=== PATIENT | male | born 1950 | race Caucasian/White ===

== ENCOUNTER 2019-04-01 18:29 | Outpatient (CLI) | payer MEDICARE, OTHER ==
--- NOTE | 2019-04-04 02:39 | XRAY Report ---
Reason: ACUTE ON CHRONIC R HIP PAIN,MEDIAL THUMP PAIN @ P Procedure Date: 04/01/2019 Accession Number: [id number] / [id number] Procedure: XR - Hand 3 View RT CPT Code: FULL RESULT: EXAM: RIGHT HAND RADIOGRAPHY EXAM DATE: 04/01/2019 06:48 PM. CLINICAL HISTORY: Pain in the right thumb. COMPARISON: None. TECHNIQUE: 3 views. FINDINGS: Bones: No acute fracture seen. Joints: No dislocation seen. Degenerative joint disease in the interphalangeal joints. Degenerative joint disease in the first CMC joint and the second MCP joint. Soft Tissues: Grossly unremarkable. IMPRESSION: 1. No fracture or dislocation seen. 2. Degenerative changes as noted. RADIA
--- NOTE | 2019-04-04 02:57 | XRAY Report ---
Reason: ACUTE ON CHRONIC R HIP PAIN,MEDIAL THUMP PAIN @ P Procedure Date: 04/01/2019 Accession Number: [id number] / [id number] Procedure: XR - Hip w/Pelvis 2-3V RT CPT Code: FULL RESULT: EXAM: RIGHT HIP RADIOGRAPHY EXAM DATE: 04/01/2019 06:48 PM. CLINICAL HISTORY: Acute on chronic right hip pain. COMPARISON: None. TECHNIQUE: 2 views. FINDINGS: Bones: Normal. No fractures or bone lesion. Joints: No dislocation. Mild bilateral hip joint degenerative change. Severe lower lumbar facet arthropathy. Soft Tissues: Vasectomy clips are seen. No soft tissue swelling. A few bilateral hemipelvis calcifications, most suggestive of phleboliths. IMPRESSION: No acute osseous abnormality demonstrated. RADIA
== END 2019-04-01 18:30 | disposition home or self-care (01) ==
LOC: DI 18:29
PROVIDERS: ATTEND Family Medicine
DX: M25.551 Pain in right hip (principal); M19.041 Primary osteoarthritis, right hand

== ENCOUNTER 2022-06-30 15:36 | Outpatient (CLI) | payer MEDICARE, OTHER | END 2022-06-30 15:37 | disposition critical access hospital (66) | LOC: EMS 15:36 | DX: I46.9 Cardiac arrest, cause unspecified (principal) | CPT/HCPCS: A0425; A0433 ==

== ENCOUNTER 2022-06-30 16:06 | Emergency (ER) | payer MEDICARE, OTHER ==
[2022-06-30] MEDS ORDERED: SODIUM CHLORIDE 0.9% 1,000 ML IV STA (16:52)
[2022-06-30] MEDS ORDERED: AMIODARONE 360 MG/200 ML 200 ML IV ONE (16:57)
[2022-06-30] MEDS ORDERED: NOREPINEPHRINE/D5W 8 MG/250 ML BAG IV STA (16:57)
--- NOTE | 2022-06-30 17:00 | XRAY Report ---
PROCEDURE: Chest for Line Placement INDICATIONS: CENTRAL LINE PLACEMENT TECHNIQUE: One view of the chest was acquired. COMPARISON: None. FINDINGS: Endotracheal tube tip measures 7.6 cm above the holly. Right sided PICC line tip in the mid SVC. Bhaskar ogastric tube in the stomach. Lung bases are not included on exam. Heart size is enlarged. Moderate to severe vascular congestion w ith bilateral pulmonary infiltrate present. IMPRESSION: Right PICC line tip in the mid SVC. No pneumothorax. Endotracheal and nasogastric tubes in good posit ion. Cardiomegaly, severe vascular congestion bilateral pulmonary infiltrates reflecting pulmonary edema o r infection. Reviewed by: Kayode Simms MD on 06/30/2022 3:58 PM AKST Approved by: Kayode Simms MD on 06/30/2022 3:58 PM AKST Station ID: [id number]
[2022-06-30 17:08] LABS: BASOPHILS % (AUTO) 0.7 %; EOSINOPHILS % (AUTO) 0.7 %; HCT - HEMATOCRIT 42.1 % (42.0-52.0); HGB - HEMOGLOBIN 12.4 g/dL (14.0-18.0); LYMPHOCYTES % (AUTO) 39.4 %; MEAN CORPUSCULAR HEMOGLOBIN 28.2 pg (27.0-31.0); MEAN CORPUSCULAR HGB CONC 29.5 g/dL (32.0-36.0); MEAN CORPUSCULAR VOLUME 95.7 fL (80.0-94.0); MEAN PLATELET VOLUME 10.8 fL (7.4-11.4); MONOCYTES % (AUTO) 4.3 %; NEUTROPHILS % (AUTO) 45.3 %; PLT - PLATELET COUNT 109 10^3/uL (130-450); RED CELL DISTRIBUTION WIDTH 12.5 % (12.0-15.0)
[2022-06-30 17:11] LABS: ABNORMAL LYMPHS % (MANUAL) 0 %
[2022-06-30 17:23] LABS: ALBUMIN/GLOBULIN RATIO 1.3 (1.0-2.2); BILIRUBIN,TOTAL 0.8 mg/dL (0.2-1.0); CALCIUM 7.6 mg/dL (8.5-10.3); CREATININE 1.5 mg/dL (0.6-1.2); TOTAL PROTEIN 5.3 g/dL (6.7-8.2)
[2022-06-30 17:40] LABS: BAND NEUTROPHILS % (MANUAL) 7 %; BASOPHILS # (MANUAL) 0.1 10^3/uL (0-0.1); BASOPHILS % (MANUAL) 1 %; LYMPHOCYTES % (MANUAL) 32 %; METAMYELOCYTES % (MANUAL) 4 %; MONOCYTES # (MANUAL) 0.4 10^3/uL (0.0-1.0); MYELOCYTES % (MANUAL) 3 %; NEUTROPHILS # (MANUAL) 6.4 10^3/uL (1.5-6.6); NUCLEATED RBC (MANUAL) 2 %; PLATELET ESTIMATE, MANUAL DECREASED (<130,000) (NORMAL); PLATELET MORPHOLOGY NORMAL APPEARANCE (NORMAL); RBC MORPHOLOGY (MULTIPLE) NORMAL APPEARANCE (NORMAL); REACTIVE LYMPHS % (MANUAL) 11 %; WBC MORPHOLOGY (MULTIPLE) NORMAL APPEARANCE (NORMAL)
[2022-06-30 17:41] LABS: DIFFERENTIAL COMMENT MANUAL DIFFERENTIAL
[2022-06-30 17:48] VITALS: BP 78/48
--- NOTE | 2022-06-30 17:58 | ED Physician Documentation ---
PD HPI CPR - Stated complaint Stated Complaint: CPR - Chief complaint Chief Complaint: Critical Care - History obtained from History obtained from: Family, EMS - Additional information Additional information: The patient is brought to the emergency department with CPR in process after suddenly complaining of chest pain at home and then arresting shortly after being picked up by EMS. Patient's states he had been watching the football game and was very animated with this, and then went down to check on his cat in the garage. states that shortly thereafter, he came back the house looking allen and sweaty and stated that he did not feel well and was having chest pain. The patient has a known history of coronary artery disease and had 2 small stents placed about 4 years ago. He has not had an WI or other issues since. He has been taking aspirin and is not on any other anticoagulants. The medics arrived and shortly after getting the patient in the ambulance, he stated that he felt as though he was going to pass out and went into ventricular fibrillation. The patient proceeded to remain first in ventricular fibrillation and then PEA despite exhaustive efforts to resuscitate him in route. The patient arrived at our emergency department approximately 40 minutes later, having received ten 1 mg doses of epinephrine, 6 shocks, and a total of 450 mg of amiodarone in route. CPR was still in progress and the rhythm on the monitor was still showing PEA. No further information was available at that time. Review of Systems Unable to obtain: Unresponsive PD ED PE NORMAL - General General: Other (Unresponsive, cyanotic appearing patient with CPR in progress.) - HEENT HEENT: Atraumatic, Other (Pupils fixed at 3 mm) - Neck Neck: Other (Some JVD) - Cardiac Cardiac: Other (Cardiac activity absent, pulses absent) - Respiratory Respiratory: Other (Occasional agonal respiratory effort. Moderate bloody residue in ET tube, which demonstrates lip line 23 cm. Bilateral mild rales, breath sounds equal BL) - Abdomen Abdomen: Soft, Other (Moderate distention) - Derm Derm: Other (Cyanotic) - Extremities Extremities: No edema - Neuro Neuro: Other (Mild agonal respirations, otherwise no signs of neurologic activity) Results - Vitals Vitals: Vital Signs - 24 hr 06/30/22 06/30/22 06/30/22 16:06 16:16 16:51 Temperature Heart Rate 0 L 86 111 H Respiratory 24 22 Rate Blood Pressure 0/0 L 96/68 O2 Saturation 90 L 06/30/22 06/30/22 06/30/22 17:11 17:23 17:31 Temperature 35.3 C L 35.2 C L Heart Rate 100 114 H 99 Respiratory 21 22 16 Rate Blood Pressure 63/44 L 94/63 102/62 O2 Saturation 06/30/22 06/30/22 17:34 17:48 Temperature Heart Rate 111 H 123 H Respiratory 16 16 Rate Blood Pressure 97/58 L 78/48 L O2 Saturation Oxygen O2 Source Mechanical ventilator - Labs Labs: Laboratory Tests 06/30/22 06/30/22 06/30/22 16:30 16:30 16:30 WBC 14.0 H RBC 4.40 L Hgb 12.4 L Hct 42.1 MCV 95.7 H MCH 28.2 MCHC 29.5 L RDW 12.5 Plt Count 109 L MPV 10.8 Neut # (Auto) Not Reportable Lymph # (Auto) Not Reportable Tama # (Auto) Not Reportable Eos # (Auto) Not Reportable Baso # (Auto) Not Reportable Absolute Nucleated RBC Not Reportable Total Counted 100 Band Neuts % (Manual) 7 Reactive Lymphs % (Man) 11 Abnorm Lymph % (Manual) 0 Metamyelocytes % 4 H Myelocytes % 3 H Nucleated RBC % Not Reportable Neutrophils # (Manual) 6.4 Lymphocytes # (Manual) 6.0 H Monocytes # (Manual) 0.4 Eosinophils # (Manual) 0.0 Basophils # (Manual) 0.1 Nucleated RBCs 2 Differential Comment MANUAL DIFFERENTIAL WBC Morphology NORMAL APPEARANCE Platelet Estimate DECREASED (<130,000) Platelet Morphology NORMAL APPEARANCE RBC Morph Micro Appear NORMAL APPEARANCE Sodium 137 Potassium 3.0 L Chloride 103 Carbon Dioxide 17 L Anion Gap 17.0 H BUN 18 Creatinine 1.5 H Estimated GFR (MDRD) 46 L Glucose 348 H Calcium 7.6 L Total Bilirubin 0.8 AST 129 H ALT 168 H Alkaline Phosphatase 64 Troponin I High Sens 138.8 H* Total Protein 5.3 L Albumin 3.0 L Globulin 2.3 Albumin/Globulin Ratio 1.3 Lipase 59 H - Rads (name of study) Chest x-ray Radiology: Final report received, See rad report (Right subclavian line tip in m id SVC; no pneumothorax; ET tube and OG tubes in good position; cardiomegaly, severe vascular congestion; bilateral pulmonary infiltrates) Procedures - Central Line - Major Central Line Preparation: Unable to obtain consent, Sterile prep and drape Central line location: Right Subclavian Central line type: Triple lumen Central line aftercare: Secured, Placement confirmed, No pneumothorax, No complications PD Medical Decision Making - ED course Complexity details: reviewed results, re-evaluated patient, considered differential, d/w family, d/w senior solutions workflow consultant ED course: The patient arrived with CPR in progress and having just received another dose of epinephrine 1 mg IV. At the 2-minute katya after the most recent dose of epi, another pulse check was done and the patient was still pulseless. I did order a milligram of epinephrine to be given from our supply and CPR was continued for another 2 minutes. The patient that point was found to have agonal respirations and a thready pulse. We did find that his pulse and rhythm became stronger and more organized with continued assistance of respirations with 100% oxygen. The patient was given another 150 mg of amiodarone and an amiodarone drip was ordered. A Moralez was placed and the patient was started on hypothermic postarrest protocol. I did place a subclavian central line as above. OG tube was also placed. During these efforts, the patient was noted to become increasingly bradycardic, and so a milligram of atropine was administered. This did improve the patient's pulse rate for few minutes but the patient began to become increasingly bradycardic and lost pulses again, so CPR was reinitiated. The patient was given 2 more rounds of epinephrine, as well as an amp of bicarbonate, and did regain circulation again. Chest x-ray showed all of the tubes to be in good placement with no pneumothorax. EKG showed a wide-complex rhythm with diffuse ST elevation, consistent with the patient's recent arrest. [facility] was contacted and Dr. Horowitz in the emergency department accepted the patient for immediate transfer to the [facility]. The patient's and sister did arrive and I did explain the patient's extremely poor prognosis and very tenuous hold on adequate circulation. The patient was found to be persistently hypotensive and was started on a Levophed drip. He did arrest again and required 2 more doses of epinephrine. Our medical flight crew and helicopter had gone to another case, and the flight crew from [place] had been summoned and did come to take the patient to [facility]. The patient had been steadily titrated up on the amiodarone and the Levophed drip, and this process continued after the arrival of the flight crew. The patient did arrest 1 more time and ultimately received his 16th milligram epinephrine. All of his arrest in the emergency department involved PEA and not ventricular fibrillation, so no further shocks were given. The patient was started on bicarbonate and vasopressin drips in the ED. He eventually stabilized enough to be able to leave with the flight crew. I spoke with the patient's and sister extensively, as the patient's , a former flight nurse and nurse practitioner, had concerns about sending the patient to [facility] because they do not have capability to do a CABG if needed. However, explained to her that they are the closest and best able to take the patient at this time. I have explained to her that given the extended period of initial resuscitation and lack of perfusing rhythm, the likelihood of recovery from what is undoubtedly profound global ischemia of both the brain and the heart, is very low. What the patient needs most immediately is angiogram and if needed, angioplasty to relieve any blockage of the coronary arteries. The patient's expressed understanding and was agreeable to the patient going to [facility]. - Critical Care Time(min): 90 Time Includes: Direct patient care, Review records, Reassess patient, Document care, Coordinate care, Medical consult, Family consult for tx dec, See progress note Data interpretation: Labs, Pulse ox, CXR, Prior EKG, Cardiac output, See progress note Procedures included in critical care time: Blood draw, Ventilator mgmt, See progress note Procedures excluded from critical care time: Central IV, CPR, See progress note Departure - Departure Disposition: 02 Transfer Acute Care Hosp Clinical Impression: Cardiac arrest STEMI (ST elevation myocardial infarction) Qualifiers: Involved coronary artery: unspecified coronary artery Qualified Code(s): I21.3 - ST elevation (STEMI) myocardial infarction of unspecified site Condition: Critical
[2022-06-30 18:08] LABS: CORONAVIRUS 229E-RESP PCR NOT DETECTED; CORONAVIRUS HKU1-RESP PCR NOT DETECTED; CORONAVIRUS NL63-RESP PCR NOT DETECTED; CORONAVIRUS OC43-RESP PCR NOT DETECTED; HUMAN METAPNEUMOVIRUS NOT DETECTED; INFLUENZA A- RESP PCR PANEL NOT DETECTED; RHINOVIRUS/ENTEROVIRUS NOT DETECTED; SARS-CoV-2 -RESP PCR PANEL NOT DETECTED
[2022-06-30 18:09] LABS: B. PARAPERTUSSIS- RESP PCR PAN NOT DETECTED; B. PERTUSSIS- RESP PCR PANEL NOT DETECTED; C. PNEUMONIAE- RESP PCR PANEL NOT DETECTED; INFLUENZA B - RESP PCR PANEL NOT DETECTED; M. PNEUMONIAE- RESP PCR PANEL NOT DETECTED; PARAINFLUENZA VIRUS 1 NOT DETECTED; PARAINFLUENZA VIRUS 2 NOT DETECTED; PARAINFLUENZA VIRUS 3 NOT DETECTED; PARAINFLUENZA VIRUS 4 NOT DETECTED; RSV- RESP PCR PANEL NOT DETECTED
== END 2022-06-30 18:13 | disposition short-term general hospital (02) ==
LOC: EDUNIT# → ED 16:06
DX: I46.9 Cardiac arrest, cause unspecified (principal); I21.3 ST elevation (STEMI) myocardial infarction of unspecified site; Z20.822 Contact with and (suspected) exposure to COVID-19
CPT/HCPCS: 36415; 36556; 80053; 83690; 84484; 85025; 87633; 92950; 93005; 94002; 94770; 99291; 99292